=== PATIENT | female | born 1960 | race Caucasian/White ===

== ENCOUNTER → 2017-07-14 | Outpatient (CLI) | payer BC | END | disposition home or self-care (01) | LOC: LAB 11:56 | DX: N84.1 Polyp of cervix uteri (principal) | CPT/HCPCS: 36415; 83001 ==

== ENCOUNTER → 2017-07-18 | Outpatient (CLI) | payer BC ==
--- NOTE | 2017-07-18 13:59 | KCIC ---
Indication: Cervical polyp removal and 07/14/2017. No prior studies are available for comparison. Transabdominal sonography was performed. Transvaginal study could not be performed due to recent surgical procedure. The uterus measures 7.9 x 4.2 x 4.5 cm. The endometrium is 4 mm in thickness. There is a somewhat rounded area of heterogeneity in the region of the lower uterine segment posteriorly measuring 3.5 x 2.9 x 3.2 cm. This may represent a fibroid. No other masses are seen. The right ovary measures 2.0 x 1.5 x 2.1 cm and the left ovary measures 2.0 x 1.3 x 2.1 cm. There is blood flow to both ovaries. No adnexal mass is seen. IMPRESSION: Questionable fibroid noted in the posterior aspect of the lower uterine segment. Transvaginal study would be useful for further evaluation when the patient is able. No other significant abnormality is seen. Electronically signed by: Juan Antonio Ojeda MD (07/18/2017 1:55 PM) [id number]
== END | disposition home or self-care (01) ==
LOC: KCIC US 12:16
DX: N84.1 Polyp of cervix uteri (principal)
CPT/HCPCS: 76856

== ENCOUNTER → 2018-09-17 | Day surgery (SDC) | payer BC ==
[~2018-09-17] MED LIST: IV RINGERS,LACTATED 1000ML 1,000 ML IV SCH; LIDOCAINE 1% PF 2 ML VIAL. ONE; PROPOFOL 20 ML IV ONE
[2018-09-17 11:03] VITALS: BP 126/80
--- NOTE | 2018-09-18 18:07 | PATHOLOGY ---
[facility] Accession Number: [id number] . 01 Material submitted: . PART A: SMALL BOWEL BX PART B: GASTRIC ANTRUM PART C: DISTAL ESOPHAGUS PART D: MID ESOPHAGUS . 01 Clinical history: . Dysphagia . 02 Diagnosis: A. Small bowel biopsy: - No significant pathologic abnormalities. . B. Gastric biopsy, antrum: - Chronic gastritis, mild. . C. Esophageal biopsy, distal esophagus: - Segments of esophagogastric and gastric mucosa showing moderate to marked chronic inflammation consistent with reflux esophagitis. . D. Esophageal biopsy, middle esophagus: - Segments of squamous esophageal mucosa identified. . (JPM:chan; 09/18/2018) MBR/09/18/2018 . 02 Comment: Sections of the small bowel biopsy reveal segments of duodenal and small intestine mucosa. Where best oriented, the mucosa villi show no sprue-like changes or significant inflammatory changes. . Sections of the gastric antral biopsy show congestion and mild chronic inflammation. A properly controlled immunoperoxidase stain for Helicobacter is negative for Helicobacter organisms. . Sections of the distal esophageal biopsy reveal segments of esophagogastric and gastric mucosa showing focally active moderate to marked chronic inflammation. The squamous esophageal mucosa is hyperplastic and shows focal intraepithelial eosinophils. The findings are consistent with reflux esophagitis. There is no evidence of Chaudhry's change, dysplasia, or malignancy. . Sections of the middle esophageal biopsy reveal segments of squamous esophageal mucosa. There is no evidence of Chaudhry's change, dysplasia, or malignancy. . Special stain performed: Immunoperoxidase stain for Helicobacter on B1. . (GEOVANNYM:chan; 09/18/2018) . 02 Electronically signed: . Shahbaz Cruz MD, Pathologist NPI- [id number] . 01 Gross description: . A. Received in formalin labeled "Ileana, Judie, small bowel BX," are multiple segments of wick soft tissue measuring 0.9 x 0.3 x 0.1 cm in aggregate dimensions. The specimen is filtered and entirely submitted in cassette A1. . B. Received in formalin labeled "Judie Tejeda, gastric antrum BX," are 2 segments of wick soft tissue measuring 0.9 x 0.2 x 0.2 cm in aggregate dimensions and ranging from 0.4 to 0.5 cm in maximum dimension. The specimen is submitted entirely in cassette B1. . C. Received in formalin labeled "Ileana, Judie, distal esophagus BX," are 3 segments of wick soft tissue measuring 1.0 x 0.6 x 0.2 cm in aggregate dimensions and ranging from 0.3 to 0.5 cm in maximum dimension. The specimen is submitted entirely in cassette C1. . D. Received in formalin labeled "Eliseo Tejedaa, mid esophagus BX," are 2 segments of wick soft tissue measuring 0.9 x 0.2 x 0.2 cm in aggregate dimensions and ranging from 0.3 to 0.6 cm in maximum dimension. The specimen is submitted entirely in cassette D1. (TSD; 09/17/2018) /TOB . 02 Pathologist provided ICD-10: K29.50, K21.0 . 02 CPT . 449360, 738659, 260433, 984218, [id number] Specimen Comment: A courtesy copy of this report has been sent to Specimen Comment: [phone], . Specimen Comment: Report sent to / DR CALLAHAN Specimen Comment: A duplicate report has been generated due to demographic updates. Performed at: [facility] [address] [facility] [address], [place] [id number] MD Bay Grimes MD Phone: [phone] [facility]formed [facility]: [facility] [address] [place], [place] [id number] MD Shahbaz Cruz MD Phone: [phone]
== END | disposition home or self-care (01) ==
LOC: SURG 09:38
PROVIDERS: ATTEND Internal Medicine Gastroenterology
DX: K21.0 Gastro-esophageal reflux disease with esophagitis (principal); K29.50 Unspecified chronic gastritis without bleeding; B37.81 Candidal esophagitis; Z80.0 Family history of malignant neoplasm of digestive organs; Z83.1 Family history of other infectious and parasitic diseases; Z72.89 Other problems related to lifestyle; Z79.899 Other long term (current) drug therapy; Z98.890 Other specified postprocedural states
CPT/HCPCS: 43239; 43450; 88305; 88342; J2704